=== PATIENT | male | born 1935 | race Two or more races ===

== ENCOUNTER 2024-09-14 21:15 | Inpatient (IN) | payer OTHER, MEDICAID ==
[~2024-09-14] VITALS: Ht 193 cm; Wt 100.0 kg
--- NOTE | 2024-09-14 21:53 | ED.PDOC ---
GI ASSESSMENT HPI Comments 89-year-old male came to ER via EMS for abdominal pain. Patient complaining of left lower quadrant abdominal pain, aching, intermittent, nonradiating, associated bouts with nausea and vomiting for the past 2 days. Patient recently seen at [facility], was diagnosed with UTI and was started with antibiotics. Abdominal pain nausea and vomiting will persist though. Patient was given Zofran by paramedics while en route to the ER Chief Complaint: Abdominal Pain Time Seen by MD: 21:52 Reviewed Notes: Living Supervisor Notes Allergies: Coded Allergies: Beta Adrenergic Blockers (Verified Allergy, Unknown, 09/14/24) Diltiazem (Verified Allergy, Unknown, 09/14/24) Information Source: Patient, Emergency Med Personnel Mode of Arrival: EMS Timing: Days Duration: Intermittent Prehospital treatment: Treatment Quality: Aching Vomitus: Watery Stool: Normal Severity: Moderate Recent: Antibiotics Recent Hx of: Abdominal Surgery Pain Location: LLQ Modifying Factors: Nothing Associated sign and symptoms: Nausea, Vomiting, Abdominal Pain Past Medical History PAST MEDICAL HISTORY: Asthma, DM, High Lipids, HTN, UTI'S Surgical History: Cholecystectomy, Hernia Repair Family History Family History: Reviewed,noncontributory to illness Social History Smoker: Non-Smoker Alcohol: Denies ETOH Use Drugs: Denies Drug Use Lives In: Home Constitutional: reports: weakness; denies: chills, diaphoresis, fatigue, fever, malaise, sweats, others EENTM: denies: blurred vision, double vision, ear bleeding, ear discharge, ear drainage, ear pain, ear ringing, eye pain, eye redness, hearing loss, mouth pain, mouth swelling, nasal discharge, nose bleeding, nose congestion, nose pain, photophobia, tearing, throat pain, throat swelling, voice changes, others Cardiovascular: denies: chest pain, dizzy spells, diaphoresis, Dyspnea on exertion, edema, irregular heart beat, left arm pain, lightheadedness, palpitations, PND, syncope, others Gastrointestinal: reports: abdominal pain, nausea, vomiting; denies: abdomen distended, blood streaked bowels, constipated, diarrhea, dysphagia, difficulty swallowing, hematemesis, melena, poor appetite, poor fluid intake, rectal bleeding, rectal pain, others Genitourinary: denies: burning, dysuria, flank pain, frequency, hematuria, incontinence, penile discharge, penile sore, pain, testicle pain, testicle swelling, urgency, others Neurological: denies: dizziness, fainting, headache, left sided numbness, left sided weakness, numbness, paresthesia, pre-existing deficit, right sided numbness, right sided weakness, seizure, speech problems, tingling, tremors, weakness, others Musculoskeletal: denies: back pain, gout, joint pain, joint swelling, muscle pain, muscle stiffness, neck pain, others Integumetry: denies: bruises, change in color, change in hair/nails, dryness, laceration, lesions, lumps, rash, wounds, others Allergic/Immunocompromised: denies: Difficulty Healing, Frequent Infections, Hives, Itching, others Hematologic/Lymphatic: denies: anemia, blood clots, easy bleeding, easy bruising, swollen glands, others Endocrine: denies: excessive hunger, excessive sweating, excessive thirst, excessive urination, flushing, intolerance to cold, intolerance to heat, unexplained weight gain, unexplained weight loss, others Psychiatric: denies: anxiety, bipolar disorder, depression, hopeless, panic disorder, schizophrenia, sleepless, suicidal, others Physical Exam General Appearance: No Apparent Distress, Normal HEENT: Normal ENT Inspection, Pharynx Normal, TMs Normal Neck: Full Range of Motion, Non-Tender, Normal, Normal Inspection Respiratory: Chest Non-Tender, Lungs Clear, No Accessory Muscle Use, No Respiratory Distress, Normal Breath Sounds Cardiovascular: No Edema, No JVD, No Murmur, No Gallop, Normal Peripheral Pulses, Regular Rate/Rhythm Breast Exam: Deferred Gastrointestinal: LLQ, No Organomegaly, No Pulsatile Mass, Normal Bowel Sounds, Soft, Tenderness Genitalia: Deferred Pelvic: Deferred Rectal: Deferred Extremities: No calf tenderness, Normal capillary refill, Normal inspection, Normal range of motion, Non-tender, No pedal edema Musculoskeletal : Apperance: Normal Neurologic: Alert, senior environmental engineer II-XII nml as Tested, No Motor Deficits, Normal Affect, Normal Mood, No Sensory Deficits Cerebellar Function: Normal Reflexes: Normal Skin: Dry, Normal Color, Warm Lymphatic: No Adenopathy Was a procedure done? Was a procedure done?: No GI differential Dx Differential Diagnosis: Diverticular disease, Gastritis/PUD, Gastroenteritis, Hernia, Pancreatitis, UTI, Urolithiasis, Dehydration, Electrolyte Imbalance X-Ray, Labs, Meds, VS Vital Signs Date Time Temp Pulse Resp B/P (MAP) Pulse Ox O2 Delivery O2 Flow Rate FiO2 09/15/24 03:27 64 15 101/54 (70) 100 09/15/24 01:42 64 15 115/61 (79) 98 09/15/24 00:00 62 09/14/24 23:59 61 11 114/60 (78) 100 09/14/24 22:45 64 15 97 Room Air* 0 21 09/14/24 22:45 99.3 64 15 136/64 (88) 97 99.3 09/14/24 21:40 64 09/14/24 21:28 98.7 62 18 118/73 (88) 98 Lab Test 09/14/24 22:10 Range/Units White Blood Count 7.4 4.4-10.8 10^3/uL Red Blood Count 3.96 L 4.5-5.90 10^6/uL Hemoglobin 11.6 L 13.5-17.5 g/dL Hematocrit 34.8 L 41.0-53.0 % Mean Corpuscular Volume 88.0 80.0-100.0 fL Mean Corpuscular Hemoglobin 29.4 28.0-32.0 pg Mean Corpuscular Hemoglobin Concent 33.4 32.0-36.0 g/dL Red Cell Distribution Width 15.2 H 11.8-14.3 % Platelet Count 108 L 140-450 10^3/uL Mean Platelet Volume 9.2 6.9-10.8 fL Neutrophils (%) (Auto) 69.6 37.0-80.0 % Lymphocytes (%) (Auto) 17.8 10.0-50.0 % Monocytes (%) (Auto) 11.0 0.0-12.0 % Eosinophils (%) (Auto) 1.5 0.0-7.0 % Basophils (%) (Auto) 0.1 0.0-2.0 % Neutrophils # (Auto) 5.2 1.6-8.6 10 ^3/uL Lymphocytes # (Auto) 1.3 0.4-5.4 10 ^3/uL Monocytes # (Auto) 0.8 0-1.3 10 ^3/uL Eosinophils # (Auto) 0.1 0-0.8 10 ^3/uL Basophils # (Auto) 0 0-0.2 10 ^3/uL Nucleated Red Blood Cells 0.0 % Prothrombin Time 12.5 H 9.3-11.8 sec Prothrombin Time INR 1.19 H 0.9-1.15 Activated Partial Thromboplast Time 23.6 L 24.5-34.5 SEC Sodium Level 139 136-145 mmol/L Potassium Level 3.1 L 3.5-5.1 mmol/L Chloride Level 106 98-107 mmol/L Carbon Dioxide Level 25 20-31 mmol/L Anion Gap 8 5-15 Blood Urea Nitrogen 30 H 9-23 mg/dL Creatinine 0.88 0.700-1.30 mg/dL Glomerular Filtration Rate Calc 82 >90 mL/min BUN/Creatinine Ratio 34.1 H 10.0-20.0 Serum Glucose 269 H 74-106 mg/dL Calcium Level 9.6 8.7-10.4 mg/dL Total Bilirubin 0.5 0.2-1.0 mg/dL Aspartate Amino Transferase (AST) 13 13-40 U/L Alanine Aminotransferase (ALT) 14 7-40 U/L Alkaline Phosphatase 60 46-116 U/L Total Protein 5.9 5.7-8.2 g/dL Albumin 3.3 3.2-4.8 g/dL Lipase 17 12-53 U/L Current Medications Medications (Trade) Dose Ordered Sig/Lynsey Route Start Time Stop Time Status Last Admin Ondansetron HCl (Zofran) 4 mg ONCE ONCE IV 09/14/24 21:45 09/14/24 21:46 DC 09/15/24 00:05 Sodium Chloride 1,000 ml @ 1,000 mls/hr Q1H ONCE IVB 09/14/24 21:45 09/14/24 22:44 DC 09/15/24 00:03 Ondansetron HCl (Zofran) 4 mg ONCE ONCE IV 09/15/24 00:30 09/15/24 00:31 DC 09/15/24 04:15 Time of 1ST Reevaluation: 21:45 Reevaluation 1ST: Unchanged Time of 2ND Reevaluation: 04:45 Reevaluation 2ND: Unchanged Patient Education/Counseling: Diagnosis, Treatment Family Education/Counseling: No Family Present Departure 1 Departure Time of Disposition: 04:45 Impression: Primary Impression: Urinary tract infection Additional Impressions: Stercoral colitis Umbilical hernia Intractable vomiting Dehydration Urinary retention Disposition: ADMITTED INPATIENT Condition: Guarded Critical Care Note Critical Care Time?: Yes (45 min-critical care time only) Critical care comment: Total critical care time: Approximately 36 minutes Due to a high probability of clinically significant, life threatening deterioration, the patient required my highest level of preparedness to intervene emergently and I personally spent this critical care time directly and personally managing the patient. This critical care time included obtaining a history; examining the patient; pulse oximetry; ordering and review of studies; arranging urgent treatment with development of a management plan; evaluation of patient's response to treatment; frequent reassessment; and, discussions with other providers. This critical care time was performed to assess and manage the high probability of imminent, life-threatening deterioration that could result in multi-organ failure. It was exclusive of separately billable procedures and treating other patients. Stability Stability form required: No Heart Score Heart Score: Heart Score Response (Comments) Value History N/A 0 EKG N/A 0 Age N/A 0 Risk Factors N/A 0 Troponin N/A 0 Total 0 I personally scribed for EVANGELISTA SALAZAR MD ([email or web address]) on 09/14/24 at 21:53. Electronically submitted by Doug Parker ([email or web address]). EVANGELISTA SALAZAR MD Sep 14, 2024 21:53
[2024-09-14 22:30] LABS: Basophils # (auto) 0 10 ^3/uL (0-0.2); Basophils % (auto) 0.1 % (0.0-2.0); Eosinophils # (auto) 0.1 10 ^3/uL (0-0.8); Eosinophils % (auto) 1.5 % (0.0-7.0); Hematocrit 34.8 % (41.0-53.0); Hemoglobin 11.6 g/dL (13.5-17.5); Lymphocytes # (auto) 1.3 10 ^3/uL (0.4-5.4); Lymphocytes % (auto) 17.8 % (10.0-50.0); Mean Corpuscular Hemoglobin 29.4 pg (28.0-32.0); Mean Corpuscular Hgb Conc. 33.4 g/dL (32.0-36.0); Monocytes # (auto) 0.8 10 ^3/uL (0-1.3); Neutrophils # (auto) 5.2 10 ^3/uL (1.6-8.6); Neutrophils % (auto) 69.6 % (37.0-80.0); Platelet Count (auto) 108 10^3/uL (140-450); Red Blood Cells 3.96 10^6/uL (4.5-5.90); Red Cell Distribution Width 15.2 % (11.8-14.3); White Blood Cell 7.4 10^3/uL (4.4-10.8)
[2024-09-14 22:45] VITALS: PULSE 64; RESP 15; O2SAT 97
[2024-09-14 22:45] LABS: INR 1.19 (0.9-1.15); Partial Thromboplastin Time 23.6 SEC (24.5-34.5); Prothrombin Time 12.5 sec (9.3-11.8)
[2024-09-14 22:55] LABS: Alanine Aminotransferase 14 U/L (7-40); Albumin 3.3 g/dL (3.2-4.8); Alkaline Phosphatase 60 U/L (46-116); Anion Gap 8 (5-15); Aspartate Aminotransferase 13 U/L (13-40); BUN/Creatinine Ratio 34.1 (10.0-20.0); Bilirubin, Total 0.5 mg/dL (0.2-1.0); Calcium 9.6 mg/dL (8.7-10.4); Carbon Dioxide 25 mmol/L (20-31); Chloride 106 mmol/L (98-107); Lipase 17 U/L (12-53); Sodium 139 mmol/L (136-145); Total Protein 5.9 g/dL (5.7-8.2)
[2024-09-14 23:00] LABS: Blood Urea Nitrogen 30 mg/dL (9-23); Glucose 269 mg/dL (74-106); Potassium 3.1 mmol/L (3.5-5.1)
[2024-09-15] MEDS: SODIUM CHLORIDE 0.9% 1,000 ML IVB ONE (00:03)
[2024-09-15] MEDS: ONDANSETRON HCL 4 MG/2 ML VIAL IV ONE ×2 (00:05→01:11)
[2024-09-15] MEDS: MORPHINE SULFATE 4 MG/ML SYR/VIAL IV ONE (00:25)
--- NOTE | 2024-09-15 03:58 | DVH ---
Examination: ABPL CLINICAL INDICATION: ;pain LLQ DIREAS;Reason for Exam: Stretcher;Stretcher;Modes of Transportation DITRANS;How is patient transported? COMPARISON: None. CONTRAST USED: None. TECHNIQUE: A plain CT study of the abdomen and pelvis is performed. The examination was performed w ith [address] scan was done according to ALARA (As Low as Reasonably Achievable). Multip lanar reconstructions were obtained. FINDINGS: CT ABDOMEN Lung Bases: Mild centrilobular emphysematous changes in the lung parenchyma. Minimal bilateral pleu ral effusions with adjacent lung atelectasis. Normal cardiac size. Scattered coronary artery calcif ications. 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 Unenhanced Liver: Mild fatty infiltration of the liver. Gallbladder: Post cholecystectomy status. Unenhanced Pancreas: The pancreas is normal in size and shape. No focal lesion is seen within. The peripancreatic fat-planes are normal. Unenhanced Spleen: The spleen is normal in size and does not show any focal abnormality. Retroperitoneum: Both adrenal glands are normal in size and morphology in this unenhanced CT scan. There is no significant retroperitoneal lymphadenopathy. Kidneys: An exophytic 4.5 x 3.7 cm cortical cyst from the right kidney upper pole and a 5.1 x 4.8 cm cortical cyst from the left kidney lower pole. A 2.2 cm cortical cyst from the left kidney upper po le. No septations or calcification within. Non-obstructive 2-3 mm calculi in the right kidney upper pole calyx. Punctate 2-3 mm calculi in the left kidney upper pole calyx, interpolar calyx and lower pole calyx. Vessels: Aorta, IVC and the mesenteric vessels cannot be commented on in this unenhanced CT scan. Stomach and Bowel: Large bowel loops are moderately distended with fecal matter. Changes of constip ation. Fecal impaction of the rectum with subtle adjacent fat stranding, probably changes of stercor al colitis. No evidence of diverticulosis or diverticulitis. Small bowel loops appear unremarkable. No features of bowel obstruction. Omental fat-containing umbilical hernia (12 x 12 mm). Subtle la xity and bulging of the left lateral abdominal wall. Skeletal System: Mild osteopenia. Moderate degenerative changes in the sacroiliac and superolateral joints and multilevel severe degenerative changes in the lumbar spine. Mild dextroscoliosis of the lumbar spine. Vacuum disc at L1-L2 through L5-S1 level with subchondral sclerosis and multilevel deg enerative lateral syndesmophyte. Minimal anterolisthesis of L4 over L5. [id number] narrowin g of the neural foramina at L2-L3, L3-L4, L4-L5 and L5-S1 levels, most prominent at L5-S1 level. CT PELVIS Bladder: Significantly distended urinary bladder measuring up to 16 cm in the craniocaudal dimension consistent with urinary retention. No intraluminal pathology. Prostate: Mild prostatomegaly. Pelvic Structures: No pelvic lymphadenopathy is identified. No abnormal fluid collection is seen. IMPRESSION: 1. Mild centrilobular emphysematous changes in the lung parenchyma with minimal bilateral pleural ef fusions and adjacent lung atelectasis. 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 Scattered coronary ar lucy calcifications. 2. Mild fatty infiltration of the liver. 3. Post cholecystectomy status. 4. Multiple cortical cysts in both kidneys. Suggest further evaluation with post-contrast scan/ultr asound. Non-obstructive calculi in the right and left kidney calyces. 5. Large bowel distention with fecal impaction and subtle changes suggestive of stercoral colitis. No bowel obstruction or diverticulitis. 6. Omental fat-containing umbilical hernia and subtle laxity of the left lateral abdominal wall. 7. Significantly distended urinary bladder consistent with urinary retention. 8. Mild prostatomegaly. 9. 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 Electronically Signed 09/15/2024 03:57 Mona Macias
[2024-09-15 06:08] LABS: Urine Bacteria None Seen /hpf (None Seen)
[2024-09-15] MEDS: cefTRIAXone 1GM/50ML D5W 50 ML IV ONE ×2 (06:11→11:45)
--- NOTE | 2024-09-15 06:15 | ECG ---
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
[2024-09-15 06:41] LABS: Urine Blood 3+ /uL (Negative); Urine Budding Yeast LOADED /hpf (None Seen); Urine Clarity Ex.Turbid (Clear); Urine Color Light-Brown (Yellow); Urine Mucus FEW (None Seen); Urine Protein, UAD 1+ (Negative); Urine Specific Gravity 1.022 (1.001-1.035); Urine Squamous Epithelial Cell FEW /hpf (<5); Urine Urobilinogen Normal (Negative); Urine WBC 647 /hpf (0 - 3)
[2024-09-15 07:30] VITALS: RESP 14; O2SAT 98
[2024-09-15] MEDS: POTASSIUM CHL 20MEQ/100ML 100 ML IV SCH (08:57)
--- NOTE | 2024-09-15 10:55 | DVH ---
INDICATION: cysts TECHNIQUE: Multiple real-time sonographic images of the kidneys and bladder were obtained. COMPARISON: CT abdomen pelvis 09/15/2024 FINDINGS: The right kidney measures 9.5 cm in length, which is normal in size. There is normal echogenicity of the right kidney. No hydronephrosis. Multiple anechoic structures within the right kidney mid to uppe r pole, the largest measuring 5.2 x 4.0 x 4.1 cm. The left kidney is not visualized. No large intraluminal masses are seen in the bladder. Barber catheter within the decompressed urinary bladder. IMPRESSION: 1. Nonvisualized left kidney due to overlying bowel gas. 2. Right renal simple appearing cysts measuring up to 5.2 cm. HS:Y
[2024-09-15] MEDS ORDERED: PANTOPRAZOLE 40 MG TAB PO ONE (11:45)
[2024-09-15] MEDS: PANTOPRAZOLE 40mg/50ML NS AE 50 ML IV ONE (11:45)
[2024-09-15] MEDS ORDERED: HYDROcodone-ACET 5/325MG TAB PO PRN (12:00)
[2024-09-15] MEDS: SODIUM CHLORIDE 0.9% 1,000 ML IV SCH (12:00)
[2024-09-15] MEDS: ACCU-CHEK COMFORT CURVE STRIP VI SCH (12:00)
[2024-09-15] MEDS ORDERED: ONDANSETRON HCL 4 MG/2 ML VIAL IV PRN (12:00)
[2024-09-15] MEDS ORDERED: MORPHINE SULFATE INJ 2 MG/ml SYRG IV PRN (12:00)
[2024-09-15] MEDS ORDERED: ACETAMINOPHEN 325 MG TAB PO PRN (12:00)
[2024-09-15] MEDS ORDERED: DEXTROSE (50%) 50ML SYRG IV PRN (12:00)
--- NOTE | 2024-09-15 12:14 | DVH ---
EXAM: CT STROKE CTH HISTORY: Quadriparesis COMPARISON: None TECHNIQUE: Axial images were obtained and reformatted in coronal and sagittal planes. All CT scans at this medical facility are performed using dose modulation techniques as appropriate t o a performed exam including the following: Automated exposure control was utilized; adjustment of th e MA and/or KV according to patient size; and use of iterative reconstruction technique. CT Dose: CTDI volume is 68.37 mGy. Dose-length product is 1346.95 mGy*cm FINDINGS: Supratentorial Region: No evidence for large acute territorial ischemia. No intracranial hemorrhage is noted. Confluent white matter hypoattenuating foci are noted bilaterally, which typically reflect chronic microvascular ischemic changes. Posterior Fossa: No acute abnormality. Brainstem: Unremarkable. Sellar/Suprasellar Region: Unremarkable. Ventricles, Cisterns, Sulci: Age-appropriate. Orbits: Unremarkable. Paranasal Sinuses: Unremarkable. Mastoid Air Cells: Unremarkable. Vasculature: Intracranial arterial calcified plaque formation noted. Bones/Soft Tissues: No acute abnormality. Other: None. IMPRESSION: 1. No acute intracranial process. Dr. Solo was notified 09/15/2024 approximately 12:07 p.m..
[2024-09-15] MEDS: PANTOPRAZOLE 40 MG/10 ML VIAL INJ IV ONE (12:25)
--- NOTE | 2024-09-15 12:43 | DVHHP2 ---
History of Present Illness Reason for Visit: Nausea, vomiting, and abdominal pain History of Present Illness Conner Paul is an 89-year-old male who with past medical history of hypertension, hyperlipidemia, diabetes, asthma, AFib, CKD 3, pacemaker placement, stroke, BPH, cholecystectomy, and hernia repair who presents to the ED for abdominal pain, nausea, and vomiting x2 days. Lady nurse states that the other was about 300 cc of coffee-ground emesis earlier this morning. Patient states that he was at [facility] for a UTI and was given antibiotics which he has taken for 4 days. Patient denies any chest pain, shortness of breath, diarrhea, lightheadedness, and dizziness. Cardiovascular: AFIB, HTN, hyperipidemia Pulmonary: Asthma NOC ANALYST: CVA Endocrine: Diabetes Past Medical History CKD 3 Pacemaker BPH Past Surgical History: Cholecystectomy, Hernia Repair Past Surgical History Pacemaker placement Smoke: No ALCOHOL: none Drugs: None Lives: with Family Domestic Violence: Neg Review of Systems Constitutional: No: Fever, Chills, Sweats, Weakness, Malaise, Other Eyes: No: Pain, Vision change, Conjunctivae inflammation, Eyelid inflammation, Other, Redness ENT: No: Ear pain, Ear discharge, Nose pain, Nose discharge, Nose congestion, Mouth pain, Mouth swelling, Throat pain, Throat swelling, Other Respiratory: No: Cough, Dry, Shortness of breath, SOB with excertion, Wheezing, Hemoptysis, Pleuritic Pain, Sputum, Wheezing, Other Cardiovascular: No: Chest Pain, Palpitations, Orthopnea, Paroxysmal Noc. Dyspnea, Edema, Lt Headedness, Other Gastrointestinal: Nausea, Vomiting, Abdominal Pain; No: Diarrhea, Constipation, Melena, Hematochezia, Other Genitourinary: No Dysuria, No Frequency, No Incontinence, No Hematuria, No Retention, No Other Musculoskeletal: No: other, neck pain, shoulder pain, arm pain, back pain, hand pain, leg pain, foot pain Skin: No: Rash, Lesions, Jaundice, Bruising, Other Neurological: No: Weakness, Numbness, Incoordination, Change in speech, Confusion, Seizures, Other Allergies: Coded Allergies: Beta Adrenergic Blockers (Verified Allergy, Unknown, 09/14/24) Diltiazem (Verified Allergy, Unknown, 09/14/24) Medications Current Medications Medications Dose Ordered Sig/Lynsey Route Start Time Stop Time Status Last Admin Dose Admin Potassium Chloride 100 ml @ 50 mls/hr Q2H IV 09/15/24 08:30 09/15/24 12:29 09/15/24 11:40 50 MLS/HR Exam Vital Signs Vital Signs Date Time Temp Pulse Resp B/P (MAP) Pulse Ox O2 Delivery O2 Flow Rate FiO2 09/15/24 09:30 63 15 99/50 (66) 98 09/15/24 07:30 Nasal Cannula* 2 28 09/15/24 07:30 98.3 98.3 General Appearance: Alert, Oriented X3, Cooperative, No acute distress HEENT: Atraumatic, PERRLA, EOMI, Mucous membr. moist/pink Respiratory: Clear to auscultation, Normal air movement Cardiovascular: Normal S1, Normal S2, No murmurs Abdominal: Soft Extremities: No clubbing, No cyanosis, No edema, Normal pulses, No tenderness/swelling Skin: No significant lesion Neuro: Normal speech, Normal tone, Sensation intact Psych/Mental Status: Mental status NL, Mood NL Labs/Xrays Labs Test 09/15/24 06:00 09/15/24 05:25 09/14/24 22:10 Range/Units Urine Color Light-brown Yellow Urine Clarity Ex.turbid Clear Urine pH 6.0 5.0-9.0 Urine Specific [place] 1.022 1.001-1.035 Urine Protein 1+ H Negative Urine Ketones 1+ H Negative Urine Blood 3+ H Negative /uL Urine Nitrite Negative Negative Urine Bilirubin Negative Negative Urine Urobilinogen Normal Negative mg/dL Urine Leukocyte Esterase 3+ Negative /uL Urine RBC 378 0 - 3 /hpf Urine WBC 647 0 - 3 /hpf Urine Squamous Epithelial Cells Few <5 /hpf Urine Bacteria None seen None Seen /hpf Urine Mucus Few None Seen Urine Yeast (Budding) Loaded None Seen /hpf Urine Glucose Normal Normal mg/dL Lactic Acid Level 1.9 0.4-2.0 mmol/L White Blood Count 7.4 4.4-10.8 10^3/uL Red Blood Count 3.96 L 4.5-5.90 10^6/uL Hemoglobin 11.6 L 13.5-17.5 g/dL Hematocrit 34.8 L 41.0-53.0 % Mean Corpuscular Volume 88.0 80.0-100.0 fL Mean Corpuscular Hemoglobin 29.4 28.0-32.0 pg Mean Corpuscular Hemoglobin Concent 33.4 32.0-36.0 g/dL Red Cell Distribution Width 15.2 H 11.8-14.3 % Platelet Count 108 L 140-450 10^3/uL Mean Platelet Volume 9.2 6.9-10.8 fL Neutrophils (%) (Auto) 69.6 37.0-80.0 % Lymphocytes (%) (Auto) 17.8 10.0-50.0 % Monocytes (%) (Auto) 11.0 0.0-12.0 % Eosinophils (%) (Auto) 1.5 0.0-7.0 % Basophils (%) (Auto) 0.1 0.0-2.0 % Neutrophils # (Auto) 5.2 1.6-8.6 10 ^3/uL Lymphocytes # (Auto) 1.3 0.4-5.4 10 ^3/uL Monocytes # (Auto) 0.8 0-1.3 10 ^3/uL Eosinophils # (Auto) 0.1 0-0.8 10 ^3/uL Basophils # (Auto) 0 0-0.2 10 ^3/uL Nucleated Red Blood Cells 0.0 % Prothrombin Time 12.5 H 9.3-11.8 sec Prothrombin Time INR 1.19 H 0.9-1.15 Activated Partial Thromboplast Time 23.6 L 24.5-34.5 SEC Sodium Level 139 136-145 mmol/L Potassium Level 3.1 L 3.5-5.1 mmol/L Chloride Level 106 98-107 mmol/L Carbon Dioxide Level 25 20-31 mmol/L Anion Gap 8 5-15 Blood Urea Nitrogen 30 H 9-23 mg/dL Creatinine 0.88 0.700-1.30 mg/dL Glomerular Filtration Rate Calc 82 >90 mL/min BUN/Creatinine Ratio 34.1 H 10.0-20.0 Serum Glucose 269 H 74-106 mg/dL Calcium Level 9.6 8.7-10.4 mg/dL Total Bilirubin 0.5 0.2-1.0 mg/dL Aspartate Amino Transferase (AST) 13 13-40 U/L Alanine Aminotransferase (ALT) 14 7-40 U/L Alkaline Phosphatase 60 46-116 U/L Total Protein 5.9 5.7-8.2 g/dL Albumin 3.3 3.2-4.8 g/dL Lipase 17 12-53 U/L INDICATION: cysts TECHNIQUE: Multiple real-time sonographic images of the kidneys and bladder were obtained. COMPARISON: CT abdomen pelvis 09/15/2024 FINDINGS: The right kidney measures 9.5 cm in length, which is normal in size. There is normal echogenicity of the right kidney. No hydronephrosis. Multiple anechoic structures within the right kidney mid to upper pole, the largest measuring 5.2 x 4.0 x 4.1 cm. The left kidney is not visualized. No large intraluminal masses are seen in the bladder. Barber catheter within the decompressed urinary bladder. IMPRESSION: 1. Nonvisualized left kidney due to overlying bowel gas. 2. Right renal simple appearing cysts measuring up to 5.2 cm. Examination: ABPL CLINICAL INDICATION: ;pain LLQ DIREAS;Reason for Exam: Stretcher;Stretcher;Modes of Transportation DITRANS;How is patient transported? COMPARISON: None. CONTRAST USED: None. TECHNIQUE: A plain CT study of the abdomen and pelvis is performed. The examination was performed with [address] scan was done according to ALARA (As Low as Reasonably Achievable). Multiplanar reconstructions were obtained. FINDINGS: CT ABDOMEN Lung Bases: Mild centrilobular emphysematous changes in the lung parenchyma. Minimal bilateral pleural effusions with adjacent lung atelectasis. Normal cardiac size. Scattered coronary artery calcifications. 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 Unenhanced Liver: Mild fatty infiltration of the liver. Gallbladder: Post cholecystectomy status. Unenhanced Pancreas: The pancreas is normal in size and shape. No focal lesion is seen within. The peripancreatic fat-planes are normal. Unenhanced Spleen: The spleen is normal in size and does not show any focal abnormality. Retroperitoneum: Both adrenal glands are normal in size and morphology in this unenhanced CT scan. There is no significant retroperitoneal lymphadenopathy. Kidneys: An exophytic 4.5 x 3.7 cm cortical cyst from the right kidney upper pole and a 5.1 x 4.8 cm cortical cyst from the left kidney lower pole. A 2.2 cm cortical cyst from the left kidney upper pole. No septations or calcification within. Non-obstructive 2-3 mm calculi in the right kidney upper pole calyx. Punctate 2-3 mm calculi in the left kidney upper pole calyx, interpolar calyx and lower pole calyx. Vessels: Aorta, IVC and the mesenteric vessels cannot be commented on in this unenhanced CT scan. Stomach and Bowel: Large bowel loops are moderately distended with fecal matter. Changes of constipation. Fecal impaction of the rectum with subtle adjacent fat stranding, probably changes of stercoral colitis. No evidence of diverticulosis or diverticulitis. Small bowel loops appear unremarkable. No features of bowel obstruction. Omental fat-containing umbilical hernia (12 x 12 mm). Subtle laxity and bulging of the left lateral abdominal wall. Skeletal System: Mild osteopenia. Moderate degenerative changes in the sacroiliac and superolateral joints and multilevel severe degenerative changes in the lumbar spine. Mild dextroscoliosis of the lumbar spine. Vacuum disc at L1-L2 through L5-S1 level with subchondral sclerosis and multilevel degenerative lateral syndesmophyte. Minimal anterolisthesis of L4 over L5. Otpsfkgz-[id number]-fjowpu narrowing of the neural foramina at L2-L3, L3-L4, L4-L5 and L 5-S1 levels, most prominent at L5-S1 level. CT PELVIS Bladder: Significantly distended urinary bladder measuring up to 16 cm in the craniocaudal dimension consistent with urinary retention. No intraluminal pathology. Prostate: Mild prostatomegaly. Pelvic Structures: No pelvic lymphadenopathy is identified. No abnormal fluid collection is seen. IMPRESSION: 1. Mild centrilobular emphysematous changes in the lung parenchyma with minimal bilateral pleural effusions and adjacent lung atelectasis. 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 Scattered coronary artery calcifications. 2. Mild fatty infiltration of the liver. 3. Post cholecystectomy status. 4. Multiple cortical cysts in both kidneys. Suggest further evaluation with post-contrast scan/ultrasound. Non-obstructive calculi in the right and left kidney calyces. 5. Large bowel distention with fecal impaction and subtle changes suggestive of stercoral colitis. No bowel obstruction or diverticulitis. 6. Omental fat-containing umbilical hernia and subtle laxity of the left lateral abdominal wall. 7. Significantly distended urinary bladder consistent with urinary retention. 8. Mild prostatomegaly. 9. Multilevel severe degenerative changes in the lumbar spine with vacuum disc phenomenon and [id number] neural foraminal narrowing, most prominent at L5-S1. EXAM: CT STROKE CTH HISTORY: Quadriparesis COMPARISON: None TECHNIQUE: Axial images were obtained and reformatted in coronal and sagittal planes. All CT scans at this medical facility are performed using dose modulation techniques as appropriate to a performed exam including the following: Automated exposure control was utilized; adjustment of the MA and/or KV according to patient size; and use of iterative reconstruction technique. CT Dose: CTDI volume is 68.37 mGy. Dose-length product is 1346.95 mGy*cm FINDINGS: Supratentorial Region: No evidence for large acute territorial ischemia. No intracranial hemorrhage is noted. Confluent white matter hypoattenuating foci are noted bilaterally, which typically reflect chronic microvascular ischemic changes. Posterior Fossa: No acute abnormality. Brainstem: Unremarkable. Sellar/Suprasellar Region: Unremarkable. Ventricles, Cisterns, Sulci: Age-appropriate. Orbits: Unremarkable. Paranasal Sinuses: Unremarkable. Mastoid Air Cells: Unremarkable. Vasculature: Intracranial arterial calcified plaque formation noted. Bones/Soft Tissues: No acute abnormality. Other: None. IMPRESSION: 1. No acute intracranial process. Assessment/Plan Assessment/Plan Assessment/Plan: Rule out GIB Intractable abdominal pain Thrombocytopenia Proteinuria Ketonuria Leukocytosis likely secondary to UTI Yeast infection Antifungals GI cx ct a/p noted labs pain management antiemetics ua am labs lipase EKG noted Blood cultures Protonix drip lactic acid History of CVA CT head negative - ordered by ED Diabetes type 2 uncontrolled Hemoglobin A1c ISS and Accu-Cheks Asthma monitor resp txs prn Chronic AFib with rate controlled History of pacemaker Continue home medications Monitor on tele CKD 3 Monitor Chronic BPH Continue home medications Hx of hypertension Continue home medications History of hyperlipidemia Continue home medications Right renal simple appearing cysts measuring up to 5.2 cm. Multiple cortical cysts in both kidneys follow up outpatient with PCP Mild centrilobular emphysematous changes in the lung parenchyma with minimal bilateral pleural effusions and adjacent lung atelectasis IV Abx Scattered coronary artery calcifications. follow up outpatient with PCP Mild fatty infiltration of the liver. Follow up outpatient with PCP Large bowel distention with fecal impaction and subtle changes suggestive of stercoral colitis IV antibiotics Omental fat-containing umbilical hernia and subtle laxity of the left lateral abdominal wall. Follow up outpatient with PCP Significantly distended urinary bladder consistent with urinary retention. Barber catheter placed by ED Continue home medication Mild prostatomegaly. 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 Follow up outpatient with PCP FEN/PPX NPO IVf PUD prophylaxis-protonix drip DVT ppx -held due to patient bleeding Admit to tele Discussed plan of care with patient and nurse Home medications reconciled Plan discussed with: Patient, Daughter My Orders Orders - ANDRA MILLER Procedure Category Date Status Time Kidney US 09/15/24 Resulted 10:13 Admit ADMIT 09/15/24 Verified 11:52 Allergies HERON 09/15/24 Verified 11:52 Code Status CODE 09/15/24 Verified 11:52 0.9% Ns 1000 Ml PHA 09/15/24 Verified 12:00 Hydrocodone-Acet PHA 09/15/24 Verified 5/325mg Tab ([place] 12:00 Ondansetron Hcl PHA 09/15/24 Verified (Zofran) 12:00 Complete Blood Count LAB 09/16/24 Verified 04:00 Comprehensive LAB 09/16/24 Verified Metabolic Panel 04:00 Npo (Nothing By DIET 09/15/24 Verified Mouth) Diet Lunch Acetaminophen Tablet PHA 09/15/24 Verified (Tylenol Tablet) 12:00 Morphine Sulfate PHA 09/15/24 Verified Injection 12:00 * Gi D[facility] [employer] CONS 09/15/24 Verified 11:52 Hemoglobin A1c LAB 09/15/24 Verified 11:52 Glucose Blood PHA 09/15/24 Verified (Accu-Chek Comfort 12:00 Mild Sliding Scale PHA 09/15/24 Verified Npo - Q6hr 12:00 Dextrose 50% Syringe PHA 09/15/24 Verified 12:00 Date of Service: Sep 15, 2024 Billing Provider: ANDRA MILLER Common Visit Codes: [id number] INP/OBS CARE (HIGH) ANDRA MILLER Sep 15, 2024 12:43
[2024-09-15] MEDS ORDERED: TAMS0.4C39 PO (12:45)
[2024-09-15] MEDS ORDERED: MIRA25TA4 PO (12:45)
[2024-09-15] MEDS ORDERED: LOSA-534 PO (12:45)
[2024-09-15] MEDS ORDERED: ALBUTEROL SULF 2.5 MG/0.5ML(0.5%) NEB SOLN NEB PRN (13:00)
[2024-09-15] MEDS ORDERED: IPRATROPIUM BROM 0.5 MG/2.5ML INH SOL NEB PRN (13:00)
[2024-09-15 13:12] LABS: Potassium 3.8 mmol/L (3.5-5.1); Sodium 142 mmol/L (136-145)
[2024-09-15 13:13] LABS: Anion Gap 12 (5-15); Carbon Dioxide 22 mmol/L (20-31)
[2024-09-15 13:14] LABS: Calcium 9.4 mg/dL (8.7-10.4)
[2024-09-15 13:18] LABS: BUN/Creatinine Ratio 45.1 (10.0-20.0)
[2024-09-15 13:24] LABS: Blood Urea Nitrogen 46 mg/dL (9-23); Chloride 108 mmol/L (98-107); Glucose 316 mg/dL (74-106)
[2024-09-15] MEDS: InsuLIN REG 1unit/0.01ml Soln (100units/ml) SC SCH (13:34)
[2024-09-15] MEDS: FLUCONAZOLE 200MG/100ML 100 ML IV ONE (13:42)
[2024-09-15 14:45] LABS: Basophils # (auto) 0 10 ^3/uL (0-0.2); Basophils % (auto) 0.2 % (0.0-2.0); Eosinophils # (auto) 0.1 10 ^3/uL (0-0.8); Eosinophils % (auto) 0.6 % (0.0-7.0); Hematocrit 33.3 % (41.0-53.0); Lymphocytes # (auto) 1.5 10 ^3/uL (0.4-5.4); Lymphocytes % (auto) 15.9 % (10.0-50.0); Mean Corpuscular Hemoglobin 29.4 pg (28.0-32.0); Mean Corpuscular Hgb Conc. 33.1 g/dL (32.0-36.0); Mean Corpuscular Volume 88.7 fL (80.0-100.0); Monocytes # (auto) 1.4 10 ^3/uL (0-1.3); Monocytes % (auto) 15.1 % (0.0-12.0); Neutrophils # (auto) 6.5 10 ^3/uL (1.6-8.6); Neutrophils % (auto) 68.2 % (37.0-80.0); Nucleated Red Blood Cells % 0.1 %; Platelet Count (auto) 86 10^3/uL (140-450); Red Blood Cells 3.75 10^6/uL (4.5-5.90); White Blood Cell 9.5 10^3/uL (4.4-10.8)
[2024-09-15 15:01] VITALS: BP 102/55; PULSE 63; RESP 10; TEMP 98.3; O2SAT 100
[2024-09-15 15:19] LABS: Lactic Acid w/Reflex 2.8 mmol/L (0.4-2.0)
[2024-09-15] MEDS: metroNIDAZOLE 500MG/100ML 100 ML IV SCH (16:34)
[2024-09-15 18:22] VITALS: O2SAT 100
[2024-09-15 19:57] VITALS: BP 142/58; PULSE 62; RESP 10; TEMP 98.3
[2024-09-15 19:58] VITALS: O2SAT 100
[2024-09-16] MEDS ORDERED: cefTRIAXone 1GM/50ML D5W 50 ML IV SCH (09:00)
[2024-09-16] MEDS ORDERED: FLUCONAZOLE 200MG/100ML 100 ML IV SCH (10:00)
== END 2024-09-15 20:35 | disposition short-term general hospital (02) | DRG 392 ==
LOC: ER 21:15 → EDBD 21:15 → TELE 09-15 11:52
DX: K52.89 Other specified noninfective gastroenteritis and colitis (principal); N30.01 Acute cystitis with hematuria; I48.20 Chronic atrial fibrillation, unspecified; E86.0 Dehydration; K42.9 Umbilical hernia without obstruction or gangrene; J45.909 Unspecified asthma, uncomplicated; N18.30 Chronic kidney disease, stage 3 unspecified; N40.1 Benign prostatic hyperplasia with lower urinary tract symptoms; E78.5 Hyperlipidemia, unspecified; E11.22 Type 2 diabetes mellitus with diabetic chronic kidney disease; I12.9 Hypertensive chronic kidney disease with stage 1 through stage 4 chronic kidney disease, or unspecified chronic kidney disease; B37.9 Candidiasis, unspecified; D69.6 Thrombocytopenia, unspecified; Z90.49 Acquired absence of other specified parts of digestive tract; Z86.73 Personal history of transient ischemic attack (TIA), and cerebral infarction without residual deficits; Z95.0 Presence of cardiac pacemaker; Z79.4 Long term (current) use of insulin; Z79.899 Other long term (current) drug therapy
CPT/HCPCS: 36415; 70450; 74176; 76775; 80048; 80053; 81001; 83036; 83605; 83690; 85025; 85610; 85730; 87040; 93005; 99291; G0378; J1450; J1815; J2405; J2470; J3480; J3490